=== PATIENT | female | born 1985 | race Caucasian/White ===

== ENCOUNTER 2017-09-21 09:48 | Emergency (ER) | payer OTHER ==
[~2017-09-21] VITALS: Ht 152.4 cm; Wt 56.7 kg
[2017-09-21] MEDS ORDERED: PRENATAL VITAM1 EACH PO (10:17)
[2017-09-21] MEDS ORDERED: ONDANSETRON ODT8 MG PO (11:36)
== END 2017-09-21 12:03 | disposition home or self-care (01) ==
LOC: ED 09:48
DX: O99.89 Other specified diseases and conditions complicating pregnancy, childbirth and the puerperium (principal); R10.9 Unspecified abdominal pain; O99.331 Smoking (tobacco) complicating pregnancy, first trimester; F17.200 Nicotine dependence, unspecified, uncomplicated; Z88.5 Allergy status to narcotic agent; Z79.899 Other long term (current) drug therapy; Z3A.11 11 weeks gestation of pregnancy
CPT/HCPCS: 81001; 99283